=== PATIENT | female | born 1975 | race Caucasian/White ===

== ENCOUNTER 2017-03-01 07:32 | Observation (INO) | payer MEDICAID ==
[~2017-03-01] VITALS: Ht 160 cm; Wt 59.9 kg
[2017-03-01] MEDS ORDERED: FOLI-43 PO (09:16)
[2017-03-01] MEDS ORDERED: PREN-142 PO (09:16)
== END 2017-03-01 09:25 | disposition home or self-care (01) ==
LOC: L&D 07:32
PROVIDERS: ADMIT Obstetrics & Gynecology; ATTEND Obstetrics & Gynecology
DX: O46.92 Antepartum hemorrhage, unspecified, second trimester (principal); Z3A.27 27 weeks gestation of pregnancy
CPT/HCPCS: 76815; 99281; G0378

== ENCOUNTER 2017-03-13 17:13 | Observation (INO) | payer MEDICAID ==
[~2017-03-13] VITALS: Ht 160 cm; Wt 67.6 kg
[~2017-03-13 17:13] MED LIST: FOLI-43 PO; PREN-142 PO
[2017-03-13] MEDS ORDERED: LACTATED RINGERS 1,000 ML IV SCH (18:00)
== END 2017-03-13 20:20 | disposition home or self-care (01) ==
LOC: L&D 17:13
PROVIDERS: ADMIT Obstetrics & Gynecology; ATTEND Obstetrics & Gynecology
DX: O36.8130 Decreased fetal movements, third trimester, not applicable or unspecified (principal); O26.853 Spotting complicating pregnancy, third trimester; Z3A.28 28 weeks gestation of pregnancy
CPT/HCPCS: 76815; 76818; 99281; G0378; J7120; 96360; 96361

== ENCOUNTER 2017-04-11 21:39 | Observation (INO) | payer MEDICAID ==
[~2017-04-11] VITALS: Ht 162.6 cm; Wt 68.0 kg
[2017-04-11] MEDS ORDERED: LACTATED RINGERS 1,000 ML IV SCH (22:29)
[2017-04-11 23:05] LABS: CLARITY URINE CLEAR (CLEAR); COLOR URINE YELLOW (YELLOW); GLUCOSE URINE NEGATIVE (NEGATIVE); KETONES URINE NEGATIVE (NEGATIVE); LEUKOCYTE ESTERASE URINE 1+ (NEGATIVE); NITRITE URINE NEGATIVE (NEGATIVE); OCCULT BLOOD URINE 3+ (NEGATIVE); PH URINE 6.5 (4.5-8.0); PROTEIN URINE NEGATIVE (NEGATIVE); SPECIFIC GRAVITY URINE 1.009 (1.005-1.030); UROBILINOGEN URINE 0.2 E.U./dL (0.2-1.0)
[2017-04-12] MEDS ORDERED: CEFAZOLIN 1000MG PREMIX 50 ML IV NR
== END 2017-04-12 01:10 | disposition home or self-care (01) ==
LOC: L&D 21:39 → INTOOBSV 21:39
PROVIDERS: ADMIT Obstetrics & Gynecology; ATTEND Obstetrics & Gynecology
DX: O46.93 Antepartum hemorrhage, unspecified, third trimester (principal); Z3A.32 32 weeks gestation of pregnancy
CPT/HCPCS: 76805; 76818; 81001; 96361; 96365; G0378; J0690; J7120; 96360

== ENCOUNTER 2017-05-31 23:55 | Emergency (ER) | payer MEDICAID ==
[~2017-05-31] VITALS: Ht 152.4 cm; Wt 75.0 kg
[2017-06-01 02:20] VITALS: BP 163/103
== END 2017-06-01 02:44 | disposition home or self-care (01) ==
LOC: ER 06-01 00:52
DX: I10 Essential (primary) hypertension (principal)
CPT/HCPCS: 99283; Z7610

== ENCOUNTER 2018-04-24 08:03 | Emergency (ER) | payer MEDICAID ==
[~2018-04-24] VITALS: Ht 157.5 cm; Wt 61.0 kg
[2018-04-24] MEDS ORDERED: TETRACAINE 0.5% OPHTH DROPS 4ML LEFTEYE ONE (08:30)
[2018-04-24] MEDS ORDERED: FLUORESCEIN SODIUM 1MG/STRIP LEFTEYE ONE (08:30)
[2018-04-24 09:36] VITALS: BP 133/60
== END 2018-04-24 09:44 | disposition home or self-care (01) ==
LOC: ER 09:07
DX: S00.12XA Contusion of left eyelid and periocular area, initial encounter (principal); X58.XXXA Exposure to other specified factors, initial encounter; Y93.89 Activity, other specified; Y92.9 Unspecified place or not applicable
CPT/HCPCS: 99283